=== PATIENT | female | born 1930 | race Caucasian/White ===

== ENCOUNTER 2017-03-22 11:13 | Outpatient (CLI) | payer MEDICARE, OTHER ==
--- NOTE | 2017-03-22 14:03 | CT ---
CT ABDOMEN AND PELVIS WITHOUT IV CONTRAST: 03/22/2017 HISTORY: Abdominal pain, unspecified. The patient has had abdominal pain for one week. FINDINGS: There is linear scarring versus atelectasis at each lung base. There are cardiac pacemaker leads partially visualized. Post cholecystectomy changes are noted. There are dense vascular calcifications seen in the abdominal aorta and involving the iliac arteries. There is colonic diverticulosis diffusely involving the colon but much more numerous involving the de scending and sigmoid colon. There is eccentric thickening involving the left lateral wall of the sig moid colon, with associated adjacent pericolonic inflammatory changes. Findings are most likely attr ibutable to diverticulitis. No fluid collection is seen to suggest an abscess, and no obvious foci o f free intraperitoneal gas is seen. Small hiatal hernia is present. The liver, spleen, pancreas, and adrenal glands demonstrate a grossly normal nonenhanced CT appearanc e. There is suggestion of scarring involving the kidneys bilaterally. There is an exophytic hypodense l esion involving the inferior pole left kidney, measuring 2.3 cm, and demonstrating an attenuation campbell fficient most suggestive of a cyst, based on this nonenhanced CT scan exam. This hypodense lesion wa s seen on the prior study in 2010 but is larger in size, which is probably related to enlargement of a cyst. This previously measured 1.2 cm. There is evidence of a hysterectomy. The urinary bladder is decompressed and not well evaluated on this exam. There is right convex scoliosis of the lumbar spine with multilevel changes in the lumbar spine. The re are post surgical changes involving the pubic symphysis. IMPRESSION: 1. Diverticulitis involving the sigmoid colon; however, follow-up evaluation is recommended after tr eatment to ensure resolution of the eccentric wall thickening of the sigmoid colon. 2. Small hiatal hernia. 3. Probable inferior pole left renal cyst, with an additional subcentimeter hypodense lesion at the lateral aspect, mid portion, left kidney. 4. Post surgical changes related to cholecystectomy and hysterectomy. 5. The above findings were discussed with Dr. Calloway on 03/22/2017 at 12:49 hours. CODE CR POS: [facility]
== END 2017-03-22 11:14 | disposition home or self-care (01) ==
LOC: CT 11:13
PROVIDERS: ATTEND Internal Medicine
DX: R10.9 Unspecified abdominal pain (principal); K57.32 Diverticulitis of large intestine without perforation or abscess without bleeding; K44.9 Diaphragmatic hernia without obstruction or gangrene; Z90.49 Acquired absence of other specified parts of digestive tract; Z90.710 Acquired absence of both cervix and uterus
CPT/HCPCS: 74176

== ENCOUNTER 2017-03-22 17:42 | Inpatient (IN) | payer MEDICARE, OTHER ==
[2017-03-22 19:40] LABS: #Basophils 0.1 thou/uL (0.0-0.2); #Eosinphils 0.2 thou/uL (0.0-0.7); #Lymphocytes 1.9 thou/uL (1.20-3.40); #Monocytes 0.7 thou/uL (0.11-0.59); #Neutrophils 5.6 thou/uL (1.40-6.50); %Basophils 0.7 % (0.0-1.0); %Eosinophils 2.3 % (0.0-10.0); %Lymphocytes 22.5 % (21.0-51.0); %Monocytes 7.9 % (0.0-10.0); Hematocrit 40.3 % (36.0-47.0); Mean Platelet Volume 7.6 fL (7.4-10.4); Red Blood Cell (RBC) Count 4.15 mill/uL (4.20-5.40); White Blood Cell (WBC) Count 8.4 thou/uL (4.8-10.8)
[2017-03-22 20:30] LABS: Bilirubin Negative (Negative); Blood, Urine Moderate (Negative); Glucose, Urine (Dipstick) Negative (Negative); Ketone, Urine Negative (Negative); Nitrite Negative (Negative); Protein, Urine (Dipstick) Negative (Neg-Trace); Urobilinogen 0.2 mg/dL (0.2-1.0)
[2017-03-22 20:33] LABS: Bacteria/HPF Rare-Few HPF (None Seen); Hyaline Casts/LPF 0-3 HYALINE CAST LPF (0-3 Hyaline); Squamous Epithelial 0-3 HPF (0-3)
[2017-03-22 20:34] LABS: ALT (SGPT) 16 U/L (8-55); AST (SGOT) 21 U/L (5-34); Alkaline Phosphatase 61 U/L (40-150); Anion Gap 14 mmol/L (10-20); BUN (Urea Nitrogen) 18 mg/dL (9.8-20.1); Bilirubin, Total 0.3 mg/dL (0.2-1.2); Calc. Creatinine Clearance 0 mL/min (70-130); Calcium 9.4 mg/dL (7.8-10.44); Carbon Dioxide 29 mmol/L (23-31); Chloride 101 mmol/L (98-107); Estimated GFR-MDRD 46; Globulin 3.3 g/dL (2.4-3.5); Lipase 7 U/L (8-78); Protein, Total 6.9 g/dL (6.0-8.3)
[2017-03-22] MEDS ORDERED: metroNIDAZOLE 500 MG/100 ML BAG ONE (21:11)
[2017-03-22] MEDS ORDERED: Ondansetron HCl/PF 4 MG/2 ML Vial IVP PRN ×2 (22:33→22:39)
[2017-03-22] MEDS ORDERED: Ondansetron ODT 4 MG TAB SL PRN (22:33)
[2017-03-22] MEDS ORDERED: Sodium Chloride 0.9% 1,000 ML IV SCH (22:33)
[2017-03-22] MEDS ORDERED: Acetaminophen 325 MG TAB PO PRN (22:33)
[2017-03-22] MEDS ORDERED: Mag-Al 1200 mg/1200 mg/30 ML UDCUP PO PRN (22:39)
[2017-03-22] MEDS ORDERED: Ondansetron ODT 4 MG TAB PO PRN (22:39)
[2017-03-22] MEDS ORDERED: Calcium Carbonate 500 MG ChewTAB PO PRN (22:39)
[2017-03-22] MEDS ORDERED: hydrALAZINE 20 MG/ML VIAL SLOW IVP PRN (22:44)
[2017-03-22] MEDS ORDERED: Labetalol HCl 100 MG/20 ML VIAL SLOW IVP PRN (22:44)
[2017-03-22] MEDS ORDERED: Diabetic Tussin 200 MG/10 ML UDCUP PO PRN (22:44)
[2017-03-22] MEDS ORDERED: Eucerin (Mineral Oil/Petrolatum,White) 30 gm Jar TOP PRN (22:44)
[2017-03-22 22:53] VITALS: BMI 27.1
--- NOTE | 2017-03-22 23:11 | HP ---
DATE OF ADMISSION: 03/22/2017 PRIMARY CARE PHYSICIAN: Elva Calloway M.D. PRIMARY CLOTH FINISHING RANGE OPERATOR: Taiwo Ponce M.D. CHIEF COMPLAINT: Abdominal discomfort. CODE STATUS: FULL CODE. SURROGATE DECISION-MAKER: The patient makes her own decision with the help of her family. HISTORY OF PRESENT ILLNESS: The patient is an 86-year-old female with diverticulosis; sick sinus syn drome, status post pacemaker; paroxysmal atrial fibrillation, on anticoagulation; and history of dive rticular bleed last year, presented to the emergency room with above complaints. The patient has abdominal discomfort that is ongoing for the last 4 days. It is localized in the sup rapubic region and the left lower quadrant. She also had diarrhea without any nausea or vomiting. S he also had some burning in the urination; however, denies any hematuria, hematemesis, or hematochezi a. She felt feverish; however, did not record her temperature. Her pain was moderate in intensity w ithout any radiation. In the emergency room, initial vital signs showed temperature 97.9, respiration of 16, pulse of 69 wi th blood pressure 153/81 with O2 saturation 93% on room air. CT scan of the abdomen was consistent w ith sigmoid diverticulitis. She received ciprofloxacin, Flagyl with IV fluids in the emergency room. The patient was seen by her primary care physician 2 days ago and was diagnosed with urinary tract in fection. She was started on antibiotics after urine cultures. Urine culture today shows E. coli sen sitive to ceftriaxone. She was getting ceftriaxone intramuscularly on the daily basis per patient re port. Dr. Calloway discussed the case with the primary urologist Dr. Butler, who recommended 1 gram Ro cephin on the daily basis. Due to her diarrhea, she was started on Flagyl yesterday. However, due t o worsening symptoms, she presented to the emergency room today. PAST MEDICAL HISTORY: 1. Hypertension. 2. Hyperlipidemia. 3. Benign brain tumor, status post removal in 2002. 4. Gastroesophageal reflux disease. 5. Anxiety. 6. Atrial fibrillation, currently on anticoagulation. 7. Rheumatoid arthritis. 8. Depression. 9. History of recurrent urinary tract infections followed by Dr. Butler. 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 11. History of shingles. 12. History of GI bleeding in 02/22/2017. 13. Diverticulosis. PAST SURGICAL HISTORY: 1. Pacemaker placement. 2. Colonoscopy in 2010. 3. Appendectomy. 4. Tonsillectomy. 5. Removal of a tumor from her back in 1960s. 7. Hysterectomy. 8. Cholecystectomy. 9. Bladder suspension. ALLERGIES: The patient is allergic to CODEINE, HYDROCODONE, DEMEROL, SULFA, AND PROPOXYPHENE. CURRENT HOME MEDICATIONS: The patient cannot recall any of her home medications. Family to bring an accurate list later today or in a.m. SOCIAL HISTORY: The patient currently lives at home. No tobacco, alcohol or drug use. Ambulates wi th the help of a walker. FAMILY HISTORY: Positive for diabetes. Sister has throat cancer. One brother with prostate cancer. Mother with hypertension. REVIEW OF SYSTEMS: The following complete review of systems was negative, unless otherwise mentioned in the HPI or below: Constitutional: Weight loss or gain, ability to conduct usual activities. Skin: Rash, itching. Eyes: Double vision, pain. ENT/Mouth: Nose bleeding, neck stiffness, pain, tenderness. Cardiovascular: Palpitations, dyspnea on exertion, orthopnea. Respiratory: Shortness of breath, wheezing, cough, hemoptysis, fever or night sweats. Gastrointestinal: Poor appetite, abdominal pain, heartburn, nausea, vomiting, constipation, or diarr hea. Genitourinary: Urgency, frequency, dysuria, nocturia. Musculoskeletal: Pain, swelling. Neurologic/Psychiatric: Anxiety, depression. Allergy/Immunologic: Skin rash, bleeding tendency. PHYSICAL EXAMINATION: VITAL SIGNS: As discussed above. GENERAL: An 86-year-old female feels generally weak, in mild distress due to abdominal discomfort. HEENT: Head atraumatic, normocephalic, sclerae are anicteric. Moist mucous membranes. No oral lesi on. NECK: Supple, no JVD appreciated. No carotid bruit. LUNGS: Clear to auscultation bilaterally. No wheezing or rales. HEART: S1, S2 present. Regular rate and rhythm. No rubs or gallops appreciated. ABDOMEN: Soft. There is tenderness over the suprapubic and the left lower quadrant. No rebound, gu arding, no costovertebral angle tenderness. SKIN: Warm and dry. LYMPH NODES: No palpable lymph nodes in the neck. PERIPHERAL VASCULAR: Radial pulses palpable bilaterally. SKIN: Warm and dry. NEUROLOGIC: Grossly nonfocal, moves all four extremities. PSYCHIATRY: Alert, awake, oriented x3. LABORATORY FINDINGS: CBC showed WBC of 13.1 two days ago and 8.4 today. Neutrophils 2 days ago was 78.1. Creatinine on the 12th was 1.28, today was 1.1. Sodium 138, potassium 3.9, bicarbonate 98 wit h bicarbonate 32 two days ago. Urinalysis on the shows greater than 50 wbc's with 4+ bacteria. Urine cultures from the 03/20/2017, shows E. coli sensitive to ceftriaxone, resistant to ampicillin and Bactrim. CT scan of the abdomen and pelvis by my review as discussed above. Chest x-ray earlier this year was negative for acute findings. IMPRESSION: 1. Acute sigmoid diverticulitis. 2. Escherichia coli urinary tract infection, currently on intramuscularly ceftriaxone on the daily b asis since 03/20/2017. 3. Suspected sepsis secondary to #1 and #2. Her WBC count was 13.1 on 03/20/2017 with left shift. 4. Acute kidney injury on chronic kidney disease stage 3. Creatinine at baseline at 0.8. Creatinin e 2 days ago was 1.28. Probably with acute organ dysfunction from sepsis and dehydration. 5. History of diverticulosis with bleeding in the past. 6. Sick sinus syndrome, status post pacemaker. 7. Paroxysmal atrial fibrillation on anticoagulation. 8. Severe rheumatoid arthritis. Does not follow any hammerer tab at this time. 9. Dyslipidemia. 10. Gastroesophageal reflux disease. 11. Anxiety. 12. Depression. 13. Hypertension. 14. History of recurrent urinary tract infections followed by Dr. Butler. PLAN: The patient will be monitored on the medical floor. She will probably require 2 to 3 days for stabilization. She also probably failed outpatient therapy. She has a urinary tract infection that is partially treated. She will require a GI evaluation. We will continue Flagyl that was started b y her primary care physician yesterday. She received ciprofloxacin in the emergency room. We will a void quinolones due to cardiac history. We will continue ceftriaxone, which will cover both urinary tract infection as well as diverticulitis. She is allergic to BACTRIM. We will repeat labs in a.m. IV hydration. Resume labs including Eliquis since patient denies any hematochezia or melena. Fall precautions. Consult Physical Therapy. Pain control. The patient is allergic to MULTIPLE NARCOTICS . Plan of care was discussed with the patient. She stated understanding. The patient will require 2 to 3 days for stabilization given her multiple comorbidities including rickey pected sepsis, dehydration, urinary tract infection and probable failed outpatient treatment for dive rticulitis.
[2017-03-22] MEDS: cefTRIAXone\\ROCEPHIN 1 GM in Sterile Water 10 ML SLOW IVP SCH (23:53)
[2017-03-22] MEDS: Sodium Chloride 0.9% 1,000 ML IV SCH (23:53)
[2017-03-23] MEDS: Zolpidem Tartrate 5 MG TAB PO PRN (00:16)
[2017-03-23 04:33] LABS: #Eosinphils 0.2 thou/uL (0.0-0.7); #Lymphocytes 1.5 thou/uL (1.20-3.40); #Monocytes 0.8 thou/uL (0.11-0.59); %Basophils 0.5 % (0.0-1.0); %Eosinophils 1.8 % (0.0-10.0); %Lymphocytes 17.8 % (21.0-51.0); %Monocytes 9.3 % (0.0-10.0); Hematocrit 38.6 % (36.0-47.0); Mean Platelet Volume 7.7 fL (7.4-10.4); White Blood Cell (WBC) Count 8.4 thou/uL (4.8-10.8)
[2017-03-23 04:49] LABS: Anion Gap 10 mmol/L (10-20); BUN (Urea Nitrogen) 13 mg/dL (9.8-20.1); BUN/Creatinine Ratio 14.61; Calc. Creatinine Clearance 54 mL/min (70-130); Calcium 9.1 mg/dL (7.8-10.44); Carbon Dioxide 31 mmol/L (23-31); Chloride 104 mmol/L (98-107); Estimated GFR-MDRD 60; Magnesium 1.4 mg/dL (1.6-2.6); Phosphorus 2.8 mg/dL (2.3-4.7)
[2017-03-23] MEDS: metroNIDAZOLE 500 MG in Premix Bag 1 BAG IVPB SCH ×3 (05:39→21:28)
[2017-03-23] MEDS ORDERED: Magnesium Sulfate 4 GM in Sodium Chloride 0.9% 250 ML 250 ML IVPB SCH (06:00)
[2017-03-23] MEDS ORDERED: Famotidine 20 MG TAB PO SCH (09:00)
[2017-03-23] MEDS ORDERED: Non-Formulary Item 1 EACH (Bifidobacterium Infantis [Align] 4 MG) PO SCH (09:00)
[2017-03-23] MEDS: Losartan 25 MG TAB PO SCH (09:07)
[2017-03-23] MEDS: Ascorbic Acid 500 mg Chewable Tablet PO SCH (09:07)
[2017-03-23] MEDS: ALPRAZolam 0.25 MG TAB PO SCH (09:07)
[2017-03-23] MEDS: Saccharomyces boulardii 250 MG CAP PO SCH (09:07)
[2017-03-23] MEDS: Cyanocobalamin (Vitamin B-12) 1,000 MCG TAB PO SCH (09:08)
[2017-03-23] MEDS: Potassium Chloride 10 MEQ TAB PO SCH ×3 (09:08→16:43)
[2017-03-23] MEDS: Apixaban 5 MG TAB PO SCH ×2 (09:08→20:50)
[2017-03-23] MEDS: Amiodarone 200 MG TAB PO SCH (09:13)
--- NOTE | 2017-03-23 11:25 | PDOC.PN ---
- Subjective Encounter Start Date: 03/23/17 Encounter Start Time: 09:55 -: old records requested/rev Pt seen and examined, chart reviewed in its entirety. Tired, up all night transferring twice to different rooms. LLQ soreness, but no cramps or pain. No diarrhea since admit, no F/C, no CP or SOb, no cough or sputum, no GI bleeding. GI consulted by skein bleacher, awaiting eval. Stool studies pending sample, pt hasnt prodiced yet Recent UTI eith E coli, sens to CTX, started on IM CTX 03/20. continued on CTX and flagyl for diverticulitis. Mag low, replaced. Hungry, wants to eat and have coffee 10 point ROs performed and neg for all systems except as per HPI - Objective Resuscitation Status: Resuscitation Status FULL:Full Resuscitation MAR Reviewed: Yes Vital Signs & Weight: Vital Signs (12 hours) Temp Pulse Resp BP BP BP BP 03/23/17 08:05 97.6 F 72 16 145/77 H 110/72 130/72 03/23/17 04:44 78 16 125/73 03/23/17 04:43 80 16 143/76 H 03/23/17 04:36 97.7 F 76 16 132/72 03/23/17 02:14 81 141/78 H 03/23/17 00:15 97.9 F 87 20 162/77 H 03/22/17 23:52 85 213/100 H 03/22/17 23:30 97.7 F 85 20 213/100 H Pulse Ox 03/23/17 08:05 91 L 03/23/17 04:44 91 L 03/23/17 04:43 92 L 03/23/17 04:36 91 L 03/23/17 02:14 03/23/17 00:15 96 03/22/17 23:52 03/22/17 23:30 97 Weight Weight 168 lb 8 oz I&O: 03/22/17 03/23/17 03/24/17 06:59 06:59 06:59 Intake Total 950 Output Total 500 Balance 450 Result Diagrams: 03/23/17 03:50 03/23/17 03:50 Radiology Reviewed by me: Yes EKG Reviewed by me: Yes Phys Exam - Physical Examination Constitutional: NAD HEENT: PERRLA, moist MMs, sclera anicteric, oral pharynx no lesions Neck: no nodes, no JVD, supple, full ROM Respiratory: no wheezing, no rales, no rhonchi, clear to auscultation bilateral Cardiovascular: RRR, no significant murmur, no rub Gastrointestinal: soft, non-tender, no distention, positive bowel sounds Musculoskeletal: no edema, pulses present Neurological: non-focal, normal sensation, moves all 4 limbs Lymphatic: no nodes Psychiatric: normal affect, A&O x 3 Skin: no rash, normal turgor, cap refill <2 seconds Dx/Plan (1) Acute diverticulitis Code(s): K57.92 - DVTRCLI OF INTEST, PART UNSP, W/O PERF OR ABSCESS W/O BLEED Status: Acute Comment: on CTX and flagyl, GI to see. (2) Chronic a-fib Code(s): I48.2 - CHRONIC ATRIAL FIBRILLATION Status: Chronic (3) E. coli UTI (urinary tract infection) Code(s): N39.0 - URINARY TRACT INFECTION, SITE NOT SPECIFIED; B96.20 - UNSP ESCHERICHIA COLI THE CAUSE OF DISEASES CLASSD ELSWHR Status: Acute Comment: present on admit, not catheter associated. continue CTX (4) CAD (coronary artery disease) Code(s): I25.10 - ATHSCL HEART DISEASE OF [place] CORONARY ARTERY W/O ANG PCTRS Status: Chronic Qualifiers: Coronary Disease-Associated Artery/Lesion type: [place] artery [place] vs. transplanted heart: [place] heart Associated angina: without angina Qualified Code(s): I25.10 - Atherosclerotic heart disease of [place] coronary artery without angina pectoris (5) Diverticulosis of colon Code(s): K57.30 - DVRTCLOS OF LG INT W/O PERFORATION OR ABSCESS W/O BLEEDING Status: Chronic Qualifiers: Diverticulosis bleeding: diverticulosis without bleeding Qualified Code(s) : K57.30 - Diverticulosis of large intestine without perforation or abscess without bleeding Comment: covered with abx, symptoms improved. (6) HTN (hypertension) Code(s): I10 - ESSENTIAL (PRIMARY) HYPERTENSION Status: Chronic Qualifiers: Hypertension type: essential hypertension - Plan cont current plan of care, continue antibiotics, PT/OT, out of bed/ambulate * .
[2017-03-23] MEDS: Sodium Chloride 0.9% 1,000 ML IV SCH (12:40)
[2017-03-23] MEDS: Fish Oil 1,000 MG CAP PO SCH (20:51)
[2017-03-23] MEDS: Multivitamin W/ Minerals 1 TAB PO SCH (20:52)
[2017-03-23] MEDS: Atorvastatin Calcium 20 MG TAB PO SCH (20:52)
--- NOTE | 2017-03-23 21:32 | CON ---
DATE OF CONSULTATION: 03/23/2017 REASON FOR CONSULTATION: Possible diverticulitis. HISTORY OF PRESENT ILLNESS: Ms. Escamilla is a pleasant 86-year-old female who was actually here a year ago with what appeared to be diverticular bleeding. She recently was having problems with recurrent UTIs and was getting some Rocephin by her primary physician. She had positive urine cultures for E . coli. She has had multiple courses of antibiotics for E. coli in the urine. This time, she was no t getting better and she got some Rocephin. She ultimately was sent to the emergency room and she is having more left lower quadrant pain. She is a little bit different than her typical urinary tract infection symptoms and apparently, she was also having some diarrhea. She does not remember exactly all of her symptoms now, but presently, she is much better. Emergency room provider note indicates t hat three days prior to admission, she was having suprapubic pain and dysuria and she was getting Charles ephin. Then, she had a CAT scan, which shows diverticulitis for which she has some Flagyl. Then, eliza aggarwal has some diarrhea and they decided to send her to the emergency room. When she presented, her symp toms seemed to worsen when she needed to urinate. Her admission CAT scan showed no signs of air in the bladder. Apparently, there is some thickening i n the lateral wall of the sigmoid colon. It is unclear if that is diverticulitis or edema. There is a little bit of fat stranding but not much. Her last colonoscopy was in 2010. She has had no bleed ing at this time. PAST MEDICAL HISTORY: Atrial fibrillation with GI bleed on Eliquis last year that was held for a cou ple of weeks and then restarted, hypertension, hyperlipidemia, benign brain tumor removed in 2002, re flux, anxiety, rheumatoid arthritis with deformation in the hands consistent with this, depression, h istory of recurrent UTIs, left parotid gland tumor, shingles, GI bleed in 02/2016. PAST SURGICAL HISTORY: Pacemaker, colonoscopy in 2010, appendectomy, tonsillectomy, removal of tumor back in 1959, hysterectomy, cholecystectomy, bladder suspension. ALLERGIES: CODEINE, DEMEROL, HYDROCODONE, SULFA. HOME MEDICATIONS: Imodium, Protonix, Toprol, B12, Align, Lipitor, vitamin C, Eliquis, amiodarone, Ty lenol. MEDICATIONS HERE: Tylenol, Maalox, DuoNeb, Xanax, amiodarone, Eliquis, vitamin C, Lipitor, Tums, vit gray D, vitamin B, multivitamin, Cozaar, Toprol, Zofran p.r.n., Protonix 40 p.o. daily, Florastor, Jad christianson. PHYSICAL EXAMINATION: GENERAL: The patient is resting comfortably in bed. She is in no distress. VITAL SIGNS: Temperature 97. She has been afebrile since admission. Blood pressure 135/98. LUNGS: Clear. HEART: Regular rate and rhythm without clicks or murmurs. ABDOMEN: Soft, nontender, without palpable hepatosplenomegaly. There is no rebound. There is no gu arding. LABORATORY AND X-RAY FINDINGS: CAT scan films were reviewed. White count was 13 on 03/20/2017, 8.4 today, hemoglobin is 12.4, was 14.4 on admission, platelet count is 260. INR is normal. Comp metabo lic profile normal. Liver function tests normal. ASSESSMENT: Lower abdominal pain, some diarrhea. She has gotten better with Rocephin and Flagyl IV. It is unclear if this is related to her urinary tract infections and diverticulitis. She did have a mild leukocytosis. She was also having diarrhea and she followed with antibiotics and this possibl y could be antibiotic-associated diarrhea. RECOMMENDATIONS: Continue present course. Continue probiotics. Advance diet to soft. Hope that eliza aggarwal can go home over the next day or so. She will need to have a colonoscopy outpatient study to [facility].
[2017-03-24] MEDS: Zolpidem Tartrate 5 MG TAB PO PRN ×2 (00:10→21:13)
[2017-03-24] MEDS: cefTRIAXone\\ROCEPHIN 1 GM in Sterile Water 10 ML SLOW IVP SCH (00:11)
[2017-03-24 04:35] LABS: #Eosinphils 0.2 thou/uL (0.0-0.7); #Lymphocytes 1.8 thou/uL (1.20-3.40); #Monocytes 0.6 thou/uL (0.11-0.59); #Neutrophils 4.1 thou/uL (1.40-6.50); %Basophils 0.7 % (0.0-1.0); %Lymphocytes 26.7 % (21.0-51.0); %Monocytes 8.7 % (0.0-10.0); Hematocrit 35.7 % (36.0-47.0); Mean Platelet Volume 7.8 fL (7.4-10.4); Red Blood Cell (RBC) Count 3.63 mill/uL (4.20-5.40); White Blood Cell (WBC) Count 6.7 thou/uL (4.8-10.8)
[2017-03-24 04:57] LABS: Anion Gap 9 mmol/L (10-20); BUN (Urea Nitrogen) 11 mg/dL (9.8-20.1); BUN/Creatinine Ratio 10.28; Calc. Creatinine Clearance 45 mL/min (70-130); Calcium 8.6 mg/dL (7.8-10.44); Carbon Dioxide 30 mmol/L (23-31); Chloride 106 mmol/L (98-107); Estimated GFR-MDRD 49; Magnesium 2.4 mg/dL (1.6-2.6); Phosphorus 3.8 mg/dL (2.3-4.7)
[2017-03-24] MEDS: metroNIDAZOLE 500 MG in Premix Bag 1 BAG IVPB SCH ×3 (06:35→21:17)
[2017-03-24] MEDS: Apixaban 5 MG TAB PO SCH ×2 (09:30→21:12)
[2017-03-24] MEDS: Saccharomyces boulardii 250 MG CAP PO SCH (09:30)
[2017-03-24] MEDS: ALPRAZolam 0.25 MG TAB PO SCH (09:31)
[2017-03-24] MEDS: Losartan 25 MG TAB PO SCH (09:32)
[2017-03-24] MEDS: Cyanocobalamin (Vitamin B-12) 1,000 MCG TAB PO SCH (09:33)
[2017-03-24] MEDS: Amiodarone 200 MG TAB PO SCH (09:33)
[2017-03-24] MEDS: Ascorbic Acid 500 mg Chewable Tablet PO SCH (09:37)
[2017-03-24] MEDS: Sodium Chloride 0.9% 1,000 ML IV SCH ×3 (09:37→22:28)
--- NOTE | 2017-03-24 11:18 | PDOC.PN ---
- Subjective Encounter Start Date: 03/24/17 Encounter Start Time: 09:55 CDiff came back positive. water BM last evening, loosly formed today No fevers, no CP or SOB, no N/V/d/c. preoccupied with telling me what she ate at every meal in every detail No overnight events noted. Seen by GI, note reviewed 10 point ROS performed and neg for all systems except as per HPI - Objective Resuscitation Status: Resuscitation Status FULL:Full Resuscitation MAR Reviewed: Yes Vital Signs & Weight: Vital Signs (12 hours) Temp Pulse Resp BP BP BP Pulse Ox 03/24/17 08:00 98.5 F 79 16 135/75 80 L 03/24/17 05:00 98.1 F 88 20 141/73 H 132/77 110/67 93 L Weight Weight 168 lb 8 oz I&O: 03/23/17 03/24/17 03/25/17 06:59 06:59 06:59 Intake Total 950 2200 Output Total 500 Balance 450 2200 Result Diagrams: 03/24/17 03:41 03/24/17 03:41 Radiology Reviewed by me: Yes EKG Reviewed by me: Yes Phys Exam - Physical Examination Constitutional: NAD HEENT: PERRLA, moist MMs, sclera anicteric, oral pharynx no lesions Neck: no nodes, no JVD, supple, full ROM Respiratory: no wheezing, no rales, no rhonchi, clear to auscultation bilateral Cardiovascular: RRR, no significant murmur, no rub Gastrointestinal: soft, non-tender, no distention, positive bowel sounds Musculoskeletal: no edema, pulses present, edema present Neurological: non-focal, normal sensation, moves all 4 limbs Lymphatic: no nodes Psychiatric: normal affect, A&O x 3 Skin: no rash, normal turgor, cap refill <2 seconds Dx/Plan (1) Acute diverticulitis Code(s): K57.92 - DVTRCLI OF INTEST, PART UNSP, W/O PERF OR ABSCESS W/O BLEED Status: Acute Comment: Cdiff positive. on CTX and flagyl. stopping CTX, and will change to a po abx for her UTI (2) Chronic a-fib Code(s): I48.2 - CHRONIC ATRIAL FIBRILLATION Status: Chronic Comment: currentyl sounds to be in NSR. HR regular (3) E. coli UTI (urinary tract infection) Code(s): N39.0 - URINARY TRACT INFECTION, SITE NOT SPECIFIED; B96.20 - UNSP ESCHERICHIA COLI THE CAUSE OF DISEASES CLASSD ELSWHR Status: Acute Comment: present on admit, not catheter associated. cx with enterococcus. trnaisiton to sensitive po agent to reduce risk of CDiff. Rx x 3 days. (4) CAD (coronary artery disease) Code(s): I25.10 - ATHSCL HEART DISEASE OF [place] CORONARY ARTERY W/O ANG PCTRS Status: Chronic Qualifiers: Coronary Disease-Associated Artery/Lesion type: [place] artery [place] vs. transplanted heart: [place] heart Associated angina: without angina Qualified Code(s): I25.10 - Atherosclerotic heart disease of [place] coronary artery without angina pectoris (5) Diverticulosis of colon Code(s): K57.30 - DVRTCLOS OF LG INT W/O PERFORATION OR ABSCESS W/O BLEEDING Status: Chronic Qualifiers: Diverticulosis bleeding: diverticulosis without bleeding Qualified Code(s) : K57.30 - Diverticulosis of large intestine without perforation or abscess without bleeding Comment: covered with abx, symptoms improved. doubt diverticular in origin (6) HTN (hypertension) Code(s): I10 - ESSENTIAL (PRIMARY) HYPERTENSION Status: Chronic Qualifiers: Hypertension type: essential hypertension (7) C. difficile colitis Status: Acute Comment: flagyl. probiotics. - Plan cont current plan of care, continue antibiotics, PT/OT, out of bed/ambulate * .
[2017-03-24] MEDS: Acetaminophen 325 MG TAB PO PRN ×2 (13:06→22:27)
--- NOTE | 2017-03-24 20:03 | PRG ---
DATE OF SERVICE: 03/24/2017 SUBJECTIVE: Ms. Escamilla is feeling little better left lower quadrant pain, less diarrhea. PHYSICAL EXAMINATION: VITAL SIGNS: Temperature is 98, pulse 79, blood pressure 135/75. ABDOMEN: Soft, nontender. LABORATORY STUDIES: White count 6.7, hemoglobin 11.2, platelet count 276. Sodium 141, potassium 4.1 , BUN 11, creatinine 1.17. Stool came back positive for C. diff toxin. ASSESSMENT: Clostridium difficile colitis. This probably is the primary reason for getting her admi tted. She has been on and off antibiotics for urinary tract infections recently. She is on Flagyl n ow. I think on discharge, vancomycin would probably be better. She does note that she has had oral Flagyl for a few days before coming in to the hospital and they gave her quite a metallic taste and n ausea. With regard to the changes on the CAT scan, there is asymmetric thickening in the sigmoid colon. It is unclear if this is related diverticular disease and ultimately she is going to need a colonoscopy, but now it is not the time. As soon as we can get her off the antibiotics for bladder, at this time with no leukocytosis, no fever, I would go ahead and stop the other antibiotics for diverticulitis, I am not sure that she has ever clearly had that. When she is moved over to oral antibiotics, I woul d just put her on vancomycin and probiotic.
[2017-03-24] MEDS: Multivitamin W/ Minerals 1 TAB PO SCH (21:13)
[2017-03-24] MEDS: Fish Oil 1,000 MG CAP PO SCH (21:16)
[2017-03-24] MEDS: Atorvastatin Calcium 20 MG TAB PO SCH (21:16)
[2017-03-25 05:20] LABS: #Basophils 0.1 thou/uL (0.0-0.2); #Eosinphils 0.1 thou/uL (0.0-0.7); #Monocytes 0.8 thou/uL (0.11-0.59); %Basophils 0.9 % (0.0-1.0); %Eosinophils 1.9 % (0.0-10.0); %Lymphocytes 28.4 % (21.0-51.0); %Monocytes 11.8 % (0.0-10.0); Hematocrit 37.5 % (36.0-47.0); Mean Platelet Volume 7.6 fL (7.4-10.4); Red Blood Cell (RBC) Count 3.75 mill/uL (4.20-5.40)
[2017-03-25] MEDS: metroNIDAZOLE 500 MG in Premix Bag 1 BAG IVPB SCH (05:50)
[2017-03-25] MEDS: Losartan 25 MG TAB PO SCH (09:35)
[2017-03-25] MEDS: Apixaban 5 MG TAB PO SCH ×2 (09:35→20:12)
[2017-03-25] MEDS: Saccharomyces boulardii 250 MG CAP PO SCH (09:35)
[2017-03-25] MEDS: Ascorbic Acid 500 mg Chewable Tablet PO SCH (09:35)
[2017-03-25] MEDS: ALPRAZolam 0.25 MG TAB PO SCH (09:36)
[2017-03-25] MEDS: Amiodarone 200 MG TAB PO SCH (09:36)
[2017-03-25] MEDS: Cyanocobalamin (Vitamin B-12) 1,000 MCG TAB PO SCH (09:37)
--- NOTE | 2017-03-25 11:41 | PDOC.PN ---
- Subjective Encounter Start Date: 03/25/17 Encounter Start Time: 10:00 Pt doing ok. No fevers or chills, no N/V/D/c, no CP or SOB. O2 still low, requiring some o2. has o2 at home for bedtime and as needed. no diarrhea, stools more formed. Seen by GI yesterday, recommended po Vanc, florastor (already on) and possible discharge. overall feeling better. pt want sme to speak with her daughter when she arrives 10 point rOS performed and neg fro all systems except as per HPI - Objective Resuscitation Status: Resuscitation Status FULL:Full Resuscitation MAR Reviewed: Yes Vital Signs & Weight: Vital Signs (12 hours) Temp Pulse Resp BP BP BP BP 03/25/17 08:42 98.5 F 64 20 143/75 H 125/80 145/74 H 03/25/17 08:00 98.5 F 64 20 03/25/17 04:27 03/25/17 01:45 97.8 F 67 20 165/78 H Pulse Ox 03/25/17 08:42 91 L 03/25/17 08:00 92 L 03/25/17 04:27 96 03/25/17 01:45 96 Weight Weight 168 lb 8 oz I&O: 03/24/17 03/25/17 03/26/17 06:59 06:59 06:59 Intake Total 2200 1200 Balance 2200 1200 Result Diagrams: 03/25/17 04:42 03/24/17 03:41 Phys Exam - Physical Examination Constitutional: NAD HEENT: PERRLA, moist MMs, sclera anicteric, oral pharynx no lesions Neck: no nodes, no JVD, supple, full ROM Respiratory: no wheezing, no rales, no rhonchi, clear to auscultation bilateral Cardiovascular: RRR, no significant murmur, no rub Gastrointestinal: soft, non-tender, no distention, positive bowel sounds Musculoskeletal: no edema, pulses present Neurological: non-focal, normal sensation, moves all 4 limbs Lymphatic: no nodes Psychiatric: normal affect, A&O x 3 Skin: no rash, normal turgor, cap refill <2 seconds Dx/Plan (1) Acute diverticulitis Code(s): K57.92 - DVTRCLI OF INTEST, PART UNSP, W/O PERF OR ABSCESS W/O BLEED Status: Acute Comment: suspect not diverticulitis, C diff positive. Rx for CDiff with po vanc now. (2) Chronic a-fib Code(s): I48.2 - CHRONIC ATRIAL FIBRILLATION Status: Chronic Comment: currently sounds to be in NSR. HR regular (3) E. coli UTI (urinary tract infection) Code(s): N39.0 - URINARY TRACT INFECTION, SITE NOT SPECIFIED; B96.20 - UNSP ESCHERICHIA COLI THE CAUSE OF DISEASES CLASSD ELSWHR Status: Acute Comment: present on admit, not catheter associated. cx with enterococcus. Changed to po ampicillin. Rx x 3-5 days only (4) CAD (coronary artery disease) Code(s): I25.10 - ATHSCL HEART DISEASE OF [place] CORONARY ARTERY W/O ANG PCTRS Status: Chronic Qualifiers: Coronary Disease-Associated Artery/Lesion type: [place] artery [place] vs. transplanted heart: [place] heart Associated angina: without angina Qualified Code(s): I25.10 - Atherosclerotic heart disease of [place] coronary artery without angina pectoris (5) Diverticulosis of colon Code(s): K57.30 - DVRTCLOS OF LG INT W/O PERFORATION OR ABSCESS W/O BLEEDING Status: Chronic Qualifiers: Diverticulosis bleeding: diverticulosis without bleeding Qualified Code(s) : K57.30 - Diverticulosis of large intestine without perforation or abscess without bleeding Comment: covered with abx, symptoms improved. doubt diverticular in origin (6) HTN (hypertension) Code(s): I10 - ESSENTIAL (PRIMARY) HYPERTENSION Status: Chronic Qualifiers: Hypertension type: essential hypertension Qualified Code(s): I10 - Essential (primary) hypertension (7) C. difficile colitis Status: Acute Comment: PO Vanc. probiotics. intake keeping up woth output. d/c if okay with GI possible later today - Plan cont current plan of care, continue antibiotics, PT/OT, out of bed/ambulate * .
[2017-03-25] MEDS: Sodium Chloride 0.9% 1,000 ML IV SCH (16:23)
--- NOTE | 2017-03-25 17:04 | PRG ---
DATE OF SERVICE: 03/25/2017 SUBJECTIVE: Ms. Escamilla's diarrhea is doing better. She has no pain. OBJECTIVE: VITAL SIGNS: Temperature is 98.7, pulse 62, respirations 20, O2 saturation 94% on 2 liters nasal can nula, and blood pressure 149/77. GENERAL: The patient is resting comfortably, but was asleep when I came in. On arousal, she is with out complaints, alert and oriented. ABDOMEN: Soft and nontender. LABORATORY STUDIES: White count 7, hemoglobin 11.4, MCV 100, platelets 272. Sodium 141, potassium 4 .1, albumin 2.7, phosphorus 3.8, magnesium 2.4, BUN and creatinine are 11 and 1.07. ASSESSMENT AND PLAN: 1. Colitis, likely Clostridium difficile, improving on Florastor and vancomycin p.o. IV Flagyl has been discontinued today. 2. Urinary tract infection. The patient is on ampicillin, will be treated for 3-5 days. 3. Chronic atrial fibrillation. She is in normal sinus rhythm now. 4. Diverticulitis, suspect this is not diverticulitis for Clostridium difficile. Agree with hospita list. 5. Home O2 requirements baseline. We would recommend 14 days of p.o. vancomycin with probiotics for 3 months. When she is discharged, she can follow up in our office in 1 week.
[2017-03-25] MEDS: Fish Oil 1,000 MG CAP PO SCH (20:12)
[2017-03-25] MEDS: Atorvastatin Calcium 20 MG TAB PO SCH (20:12)
[2017-03-25] MEDS: Multivitamin W/ Minerals 1 TAB PO SCH (20:13)
[2017-03-25] MEDS: Acetaminophen 325 MG TAB PO PRN (20:20)
[2017-03-25] MEDS: Zolpidem Tartrate 5 MG TAB PO PRN (21:21)
[2017-03-26] MEDS: Sodium Chloride 0.9% 1,000 ML IV SCH ×2 (05:26→17:24)
[2017-03-26] MEDS: Saccharomyces boulardii 250 MG CAP PO SCH (09:23)
[2017-03-26] MEDS: Apixaban 5 MG TAB PO SCH ×2 (09:26→20:31)
[2017-03-26] MEDS: Ascorbic Acid 500 mg Chewable Tablet PO SCH (09:27)
[2017-03-26] MEDS: Losartan 25 MG TAB PO SCH (09:28)
[2017-03-26] MEDS: Cyanocobalamin (Vitamin B-12) 1,000 MCG TAB PO SCH (09:29)
[2017-03-26] MEDS: ALPRAZolam 0.25 MG TAB PO SCH (09:29)
[2017-03-26] MEDS: Amiodarone 200 MG TAB PO SCH (09:30)
[2017-03-26] MEDS: Vancomycin HCl 25 MG/ML Oral PO SCH (09:30)
--- NOTE | 2017-03-26 09:47 | RAD ---
CHEST 2 VIEWS: COMPARISON: 12/23/13, 10/03/16. HISTORY: Cough. Hypoxia. FINDINGS: Stable left-sided transvenous pacemaker. Atherosclerosis of the aorta. Normal cardiac silhouette. The pulmonary vessels are slightly prominent. There are bibasilar pleural and parenchymal changes. No pneumothorax. IMPRESSION: 1. Bibasilar pleural and parenchymal changes. 2. Atherosclerosis. POS: [facility]
[2017-03-26] MEDS: Acetaminophen 325 MG TAB PO PRN (12:06)
--- NOTE | 2017-03-26 12:26 | PDOC.PN ---
- Subjective Encounter Start Date: 03/26/17 Encounter Start Time: 11:30 Pt seen and examined. Expected to go home today, but held overnight due ot episode of PND the night before. Last night, did have another episode, increased from 2 to 2.5L per NC. More importantly, pt developed explosive diarrhea, claims to have had 10 episodes, and unable to make it to the bathroom in time. No F/C, no N/V, no CP, no other SOb. 2v CXR done this morning. images and results reviewed 10 point ROS performed and neg for all systems except as per HPI - Objective Resuscitation Status: Resuscitation Status FULL:Full Resuscitation MAR Reviewed: Yes Vital Signs & Weight: Vital Signs (12 hours) Temp Pulse Resp BP Pulse Ox 03/26/17 10:41 97.4 F L 76 20 148/66 H 91 L 03/26/17 08:00 98 F 93 18 92 L 03/26/17 04:14 93 18 95 Weight Weight 168 lb 8 oz I&O: 03/25/17 03/26/17 03/27/17 06:59 06:59 06:59 Intake Total 1200 1620 Balance 1200 1620 Result Diagrams: 03/25/17 04:42 03/24/17 03:41 Radiology Reviewed by me: Yes EKG Reviewed by me: Yes Phys Exam - Physical Examination Constitutional: NAD HEENT: PERRLA, moist MMs, sclera anicteric, oral pharynx no lesions Neck: no nodes, no JVD, supple, full ROM Respiratory: no wheezing, no rales, no rhonchi, clear to auscultation bilateral Cardiovascular: RRR, no significant murmur, no rub Gastrointestinal: soft, non-tender, no distention, positive bowel sounds Musculoskeletal: no edema, pulses present Neurological: non-focal, normal sensation, moves all 4 limbs Lymphatic: no nodes Psychiatric: normal affect, A&O x 3 Skin: no rash, normal turgor, cap refill <2 seconds Dx/Plan (1) Acute diverticulitis Code(s): K57.92 - DVTRCLI OF INTEST, PART UNSP, W/O PERF OR ABSCESS W/O BLEED Status: Acute Comment: suspect not diverticulitis, C diff positive. Rx for CDiff with po vanc now. (2) Chronic a-fib Code(s): I48.2 - CHRONIC ATRIAL FIBRILLATION Status: Chronic Comment: currently sounds to be in NSR. HR regular (3) E. coli UTI (urinary tract infection) Code(s): N39.0 - URINARY TRACT INFECTION, SITE NOT SPECIFIED; B96.20 - UNSP ESCHERICHIA COLI THE CAUSE OF DISEASES CLASSD ELSWHR Status: Acute Comment: present on admit, not catheter associated. cx with enterococcus. Changed to po ampicillin. Rx x 3-5 days only (4) CAD (coronary artery disease) Code(s): I25.10 - ATHSCL HEART DISEASE OF [place] CORONARY ARTERY W/O ANG PCTRS Status: Chronic Qualifiers: Coronary Disease-Associated Artery/Lesion type: [place] artery [place] vs. transplanted heart: [place] heart Associated angina: without angina Qualified Code(s): I25.10 - Atherosclerotic heart disease of [place] coronary artery without angina pectoris (5) Diverticulosis of colon Code(s): K57.30 - DVRTCLOS OF LG INT W/O PERFORATION OR ABSCESS W/O BLEEDING Status: Chronic Qualifiers: Diverticulosis bleeding: diverticulosis without bleeding Qualified Code(s) : K57.30 - Diverticulosis of large intestine without perforation or abscess without bleeding Comment: covered with abx, symptoms improved. doubt diverticular in origin (6) HTN (hypertension) Code(s): I10 - ESSENTIAL (PRIMARY) HYPERTENSION Status: Chronic Qualifiers: Hypertension type: essential hypertension Qualified Code(s): I10 - Essential (primary) hypertension (7) C. difficile colitis Status: Acute Comment: PO Vanc. probiotics. intake now not keeping up with output. D/C today held due to massive diarrhea overnight, will monitor intake and output, continue probiotics and po vanc - Plan cont current plan of care, continue antibiotics, PT/OT, out of bed/ambulate * .
--- NOTE | 2017-03-26 15:19 | PRG ---
DATE OF SERVICE: 03/26/2017 SUBJECTIVE: Ms. Escamilla was doing pretty well yesterday, but last night she had explosive diarrhea, s ome incontinence. She also was having some problems with shortness of breath and was 65% on room air , requiring 90% on 2 liters. On talking with her, she states that she was placed on oxygen after she was diagnosed with atrial fibrillation and has been on it ever since. She denies any abdominal pain . She denies any nausea. She states that she ate a little bit of frozen treat before bedtime that h ad no milk in it. She was reluctant to eat breakfast this morning, but Dr. English encouraged her to do that. The only thing that changed yesterday was that her ampicillin started about 24 hours before , prior to that, I think she was on Augmentin. She continues receiving vancomycin p.o., as well as S accharomyces boulardii. PHYSICAL EXAMINATION: GENERAL: Patient is resting in bed. VITAL SIGNS: Temperature 97, pulse 76, O2 71% on 2.5 liters, blood pressure 140/60. LUNGS: Clear, slight rales at bases. HEART: Regular rhythm. ABDOMEN: Soft, nontender. LABORATORY STUDIES: White count 7, hemoglobin 11.1, platelet count 272. Comp metabolic profile norm al. Albumin 2.9. ASSESSMENT: 1. Clostridium difficile colitis, improving except last night a bout of explosive diarrhea, this may be related to some antibiotic change. She seems not to be toxic. She does not seem to be developin g toxic megacolon. She has no fever. Her white count is down. I thing we will just watch and see w hat she does and continue the vancomycin. 2. Shortness of breath. She had a chest x-ray that showed bibasilar pleural parenchymal changes, th is maybe with fluid overload from resuscitation which came in. With the amount of diarrhea she had l ast night, she may be diuresing from that standpoint. In any event, possible pulmonology look at her. She does not have a clear cut diagnosis for reason why she is on oxygen.
[2017-03-26] MEDS: Atorvastatin Calcium 20 MG TAB PO SCH (20:29)
[2017-03-26] MEDS: Fish Oil 1,000 MG CAP PO SCH (20:30)
[2017-03-26] MEDS: Multivitamin W/ Minerals 1 TAB PO SCH (20:30)
[2017-03-27] MEDS: Acetaminophen 325 MG TAB PO PRN ×2 (03:13→20:25)
[2017-03-27 04:35] LABS: #Eosinphils 0.1 thou/uL (0.0-0.7); #Lymphocytes 0.8 thou/uL (1.20-3.40); #Monocytes 1.2 thou/uL (0.11-0.59); %Basophils 0.2 % (0.0-1.0); %Eosinophils 0.5 % (0.0-10.0); %Lymphocytes 7.8 % (21.0-51.0); %Monocytes 11.5 % (0.0-10.0); Hematocrit 35.2 % (36.0-47.0); Mean Platelet Volume 7.9 fL (7.4-10.4); Red Blood Cell (RBC) Count 3.55 mill/uL (4.20-5.40)
[2017-03-27 04:45] LABS: Anion Gap 9 mmol/L (10-20); BUN (Urea Nitrogen) 8 mg/dL (9.8-20.1); Calc. Creatinine Clearance 51 mL/min (70-130); Calcium 8.9 mg/dL (7.8-10.44); Carbon Dioxide 30 mmol/L (23-31); Chloride 104 mmol/L (98-107); Estimated GFR-MDRD 56; Magnesium 1.4 mg/dL (1.6-2.6)
[2017-03-27] MEDS ORDERED: Furosemide 20 MG/2 ML VIAL SLOW IVP SCH (08:30)
[2017-03-27] MEDS ORDERED: Furosemide 40 MG/4 ML VIAL ONE (08:45)
[2017-03-27] MEDS: Ascorbic Acid 500 mg Chewable Tablet PO SCH (08:49)
[2017-03-27] MEDS: ALPRAZolam 0.25 MG TAB PO SCH (08:50)
[2017-03-27] MEDS: Apixaban 5 MG TAB PO SCH ×2 (08:50→20:26)
[2017-03-27] MEDS: Amiodarone 200 MG TAB PO SCH (08:51)
[2017-03-27] MEDS: Losartan 25 MG TAB PO SCH (08:52)
[2017-03-27] MEDS: Saccharomyces boulardii 250 MG CAP PO SCH (08:52)
[2017-03-27] MEDS: Cyanocobalamin (Vitamin B-12) 1,000 MCG TAB PO SCH (08:52)
[2017-03-27] MEDS: Vancomycin HCl 25 MG/ML Oral PO SCH (09:02)
[2017-03-27] MEDS: Multivitamin W/ Minerals 1 TAB PO SCH (09:04)
[2017-03-27] MEDS ORDERED: Magnesium Sulfate 3 GM in Sodium Chloride 0.9% 100 ML IVPB SCH (09:15)
[2017-03-27] MEDS: Sodium Chloride 0.9% 1,000 ML IV SCH ×2 (09:58→20:30)
--- NOTE | 2017-03-27 12:13 | PDOC.PN ---
- Subjective Encounter Start Date: 03/27/17 Encounter Start Time: 09:15 Diarrhea better overnight, incontinent only once this morning, more formed today. Still with ocasional SOB, requirign 2.5L NC O2. CXR yesterday looked like edema with cephalization. Echo 11/22 with diastolic dysfunction, EF 50-55% . BNP 1600 no f/c,no N/V, no CP, no cough 10 point ROs performed and neg for all systems except as per hPI - Objective Resuscitation Status: Resuscitation Status FULL:Full Resuscitation MAR Reviewed: Yes Vital Signs & Weight: Vital Signs (12 hours) Temp Pulse Resp BP BP Pulse Ox Pulse Ox 03/27/17 08:55 98.4 F 67 20 144/68 H 92 L 03/27/17 08:18 89 L 03/27/17 07:17 98.4 F 67 16 03/27/17 04:00 98.4 F 67 16 127/71 92 L Pulse Ox 03/27/17 08:55 03/27/17 08:18 93 L 03/27/17 07:17 03/27/17 04:00 Weight Weight 168 lb 8 oz I&O: 03/26/17 03/27/17 03/28/17 06:59 06:59 06:59 Intake Total 1620 2780 Balance 1620 2780 Result Diagrams: 03/27/17 03:49 03/27/17 03:49 Radiology Reviewed by me: Yes EKG Reviewed by me: Yes Phys Exam - Physical Examination Constitutional: NAD HEENT: PERRLA, moist MMs, sclera anicteric, oral pharynx no lesions Neck: no nodes, no JVD, supple, full ROM Respiratory: no wheezing, no rhonchi bilateral fine rales present Cardiovascular: RRR, no significant murmur, no rub Gastrointestinal: soft, non-tender, no distention, positive bowel sounds Musculoskeletal: no edema, pulses present Neurological: non-focal, normal sensation, moves all 4 limbs Lymphatic: no nodes Psychiatric: normal affect, A&O x 3 Skin: no rash, normal turgor, cap refill <2 seconds Dx/Plan (1) Acute diverticulitis Code(s): K57.92 - DVTRCLI OF INTEST, PART UNSP, W/O PERF OR ABSCESS W/O BLEED Status: Acute Comment: suspect not diverticulitis, C diff positive. Rx for CDiff with po vanc now. (2) Chronic a-fib Code(s): I48.2 - CHRONIC ATRIAL FIBRILLATION Status: Chronic Comment: currently sounds to be in NSR. HR regular (3) E. coli UTI (urinary tract infection) Code(s): N39.0 - URINARY TRACT INFECTION, SITE NOT SPECIFIED; B96.20 - UNSP ESCHERICHIA COLI THE CAUSE OF DISEASES CLASSD ELSWHR Status: Acute Comment: present on admit, not catheter associated. cx with enterococcus. Changed to po ampicillin. Rx x 3-5 days only (4) CAD (coronary artery disease) Code(s): I25.10 - ATHSCL HEART DISEASE OF [place] CORONARY ARTERY W/O ANG PCTRS Status: Chronic Qualifiers: Coronary Disease-Associated Artery/Lesion type: [place] artery [place] vs. transplanted heart: [place] heart Associated angina: without angina Qualified Code(s): I25.10 - Atherosclerotic heart disease of [place] coronary artery without angina pectoris (5) Diverticulosis of colon Code(s): K57.30 - DVRTCLOS OF LG INT W/O PERFORATION OR ABSCESS W/O BLEEDING Status: Chronic Qualifiers: Diverticulosis bleeding: diverticulosis without bleeding Qualified Code(s) : K57.30 - Diverticulosis of large intestine without perforation or abscess without bleeding Comment: covered with abx, symptoms improved. doubt diverticular in origin (6) HTN (hypertension) Code(s): I10 - ESSENTIAL (PRIMARY) HYPERTENSION Status: Chronic Qualifiers: Hypertension type: essential hypertension Qualified Code(s): I10 - Essential (primary) hypertension (7) C. difficile colitis Status: Acute Comment: PO Vanc. probiotics. intake now not keeping up with output. improving by symptoms. CCM. (8) Acute on chronic diastolic CHF (congestive heart failure) Code(s): I50.33 - ACUTE ON CHRONIC DIASTOLIC (CONGESTIVE) HEART FAILURE Status : Acute Comment: BNP elevated, like due to fluid resuscitation on admit. given lasix ealier, repeat echo ordered. monitor output and O2 requirements (9) Acute hypoxemic respiratory failure Code(s): J96.01 - ACUTE RESPIRATORY FAILURE WITH HYPOXIA Status: Acute Comment: on 2.5L NC still. diurese gently, follow up on echo, wean O2 as tolerated and arrange for home O2 - Plan cont current plan of care, continue antibiotics, PT/OT, drug abuse social worker, out of bed/ambulate * .
[2017-03-27] MEDS: Atorvastatin Calcium 20 MG TAB PO SCH (20:26)
[2017-03-27] MEDS: Fish Oil 1,000 MG CAP PO SCH (20:26)
[2017-03-27] MEDS: Zolpidem Tartrate 5 MG TAB PO PRN (20:26)
--- NOTE | 2017-03-27 22:34 | PRG ---
DATE OF SERVICE: 03/27/2017 SUBJECTIVE: Ms. Escamilla is sitting up in the commode. She is little bit cold. OBJECTIVE: VITAL SIGNS: Temperature is 98, pulse 68, blood pressure 148/74. Nurses report she has not had any explosive diarrhea the night before. ABDOMEN: Soft, nontender. LUNGS: Clear. LABORATORY DATA: White count 10, hemoglobin 11, platelet count 251. Sodium 139, BUN and creatinine are 8 and 0.94. Echocardiogram was ordered and is pending. ASSESSMENT: 1. Hypoxemia, it was felt that possibly related to some fluid overload. She has received diuresis. 2. Clostridium difficile, improving on p.o. vancomycin. 3. Urinary tract infection, Enterococcus. She was on ampicillin and has been stopped. RECOMMENDATIONS: Continue vancomycin and probiotics. We will follow from a distance. If I can be o f further assistance, please do not hesitate to contact me.
[2017-03-28] MEDS: Sodium Chloride 0.9% 1,000 ML IV SCH (04:45)
[2017-03-28 05:45] LABS: #Eosinphils 0.1 thou/uL (0.0-0.7); #Neutrophils 7.7 thou/uL (1.40-6.50); %Basophils 0.4 % (0.0-1.0); %Lymphocytes 10.4 % (21.0-51.0); %Monocytes 10.1 % (0.0-10.0); Hematocrit 34.8 % (36.0-47.0); Mean Platelet Volume 8.1 fL (7.4-10.4); Red Blood Cell (RBC) Count 3.54 mill/uL (4.20-5.40); White Blood Cell (WBC) Count 9.8 thou/uL (4.8-10.8)
[2017-03-28 06:24] LABS: Anion Gap 11 mmol/L (10-20); BUN (Urea Nitrogen) 10 mg/dL (9.8-20.1); Calc. Creatinine Clearance 53 mL/min (70-130); Calcium 8.8 mg/dL (7.8-10.44); Carbon Dioxide 27 mmol/L (23-31); Chloride 106 mmol/L (98-107); Estimated GFR-MDRD 59; Magnesium 1.9 mg/dL (1.6-2.6)
[2017-03-28] MEDS ORDERED: Furosemide 20 MG/2 ML VIAL SLOW IVP SCH (08:00)
[2017-03-28] MEDS: Cyanocobalamin (Vitamin B-12) 1,000 MCG TAB PO SCH (09:02)
[2017-03-28] MEDS: Ascorbic Acid 500 mg Chewable Tablet PO SCH (09:02)
[2017-03-28] MEDS: Amiodarone 200 MG TAB PO SCH (09:02)
[2017-03-28] MEDS: Apixaban 5 MG TAB PO SCH (09:02)
[2017-03-28] MEDS: Losartan 25 MG TAB PO SCH (09:03)
[2017-03-28] MEDS: Vancomycin HCl 25 MG/ML Oral PO SCH (09:03)
[2017-03-28] MEDS: Saccharomyces boulardii 250 MG CAP PO SCH (09:03)
[2017-03-28] MEDS: ALPRAZolam 0.25 MG TAB PO SCH (09:04)
--- NOTE | 2017-03-28 17:22 | DIS ---
DATE OF ADMISSION: 03/22/2017 DATE OF DISCHARGE: 03/28/2017 DISCHARGE DIAGNOSES: 1. Clostridium difficile colitis. 2. Moderate dehydration. 3. Acute on chronic diastolic congestive heart failure. 4. Physical deconditioning. 5. Acute hypoxic respiratory failure. CONSULTATIONS: Dr. Taiwo Ponce with GI. PROCEDURES: A 2D echocardiogram done in 03/28/2017, results are currently pending. HISTORY AND PHYSICAL: Ms. Escamilla is an 86-year-old female who presented in the emergency department on 03/22/2017 with complaints of abdominal pain. Workup revealed acute sigmoid colitis. She has a history of recent Escherichia coli urinary tract in fection, on ceftriaxone and had reactive urine still on admission. Hospitals were called for admissi on and she was subsequently admitted to inpatient. HOSPITAL COURSE: The patient was seen and examined by Dr. Casey, she was continued on Rocephin, she was started on Flagyl for possible sigmoid diverticulitis, and GI was consulted. Overnight on 03/22/2017 and 03/23/2017, she did well, she remained afebrile. She was seen by Dr. Kurtz and I took over the case. The patient was recommended continued on antibiotics and stool studies ordered on admission were pending. Later that day, the patient came back positive for Clostridium difficile colitis, and on 03/24/2017, she was feeling better. She had no diarrhea and her urinalysis was growing out Enterococcus. She wa s transitioned to p.o. ampicillin to cover the Enterococcus as the most narrow agent, she was continu ed on Flagyl, on 03/25/2017 GI recommended conversion over to oral vancomycin, which was done and the patient was started on probiotics with Florastor. By 03/26/2017, she was feeling better and was abo ut to be discharged, however, overnight she developed multiple episodes of intractable diarrhea and d ischarge was held. She had more than 10 episodes. She was continued on IV fluids, but became short of breath overnight and was found to be in fluid ove rload. IV fluids were stopped. She was given Lasix and oxygen was continued. By 03/28/2017, the patient had no further diarrhea, her breathing was stable on 2 liters of oxygen. She responded well to Lasix, and was stable for discharge home with outpatient followup. PHYSICAL EXAMINATION: The patient was seen and examined on the day of discharge. Discharge plan and disposition were discussed with the patient face to face at the bedside. I did contact her daughter to update her as well. DISCHARGE MEDICATIONS: 1. Ampicillin 250 mg p.o. t.i.d. She has 7 capsules to go. 2. Florastor 250 mg p.o. daily for 2-3 months. 3. Vancomycin 125 mg p.o. q.i.d. of compound elixir. These were sent to her pharmacy. 4. Xanax 0.25 mg p.o. daily per home dosing. 5. Amiodarone 100 mg p.o. daily. 6. Eliquis 2.5 mg p.o. b.i.d. 7. Vitamin C 1000 mg p.o. daily. 8. Lipitor 20 mg p.o. at bedtime. 9. Vitamin D3 of 5000 units p.o. at bedtime. 10. Cyanocobalamin 1000 mcg daily. 11. Fish oil 1000 mg at bedtime. 12. Losartan 50 mg p.o. daily. 13. Metoprolol succinate 50 mg p.o. at bedtime 14. Multivitamin daily. 15. Pantoprazole 40 mg p.o. daily. 16. Zoloft 50 mg p.o. daily. 17. Tylenol p.r.n. 18. Bifidobacterium 4 mg p.o. daily. 19. Her Imodium was discontinued. 20. Ambien 10 mg p.o. at bedtime per home dosing. FOLLOWUP APPOINTMENTS: 1. Primary care physician within a week. 2. Gastrointestinal as scheduled. DISCHARGE CONDITION: Stable. DISPOSITION: She is being discharged to home via private vehicle. DISCHARGE DIET: Soft recommended, heart healthy recommended. DISCHARGE ACTIVITY: Per cardiopulmonary limits.
[2017-03-28 19:08] VITALS: BP 175/75; TEMP 97.3
== END 2017-03-28 19:21 | disposition home or self-care (01) | DRG 371 ==
LOC: ERS 17:42 → 2SW 22:21 → OBSVTOIN 22:21 → T4-A 23:35
PROVIDERS: ADMIT Internal Medicine Addiction Medicine; ATTEND Internal Medicine Addiction Medicine
DX: A04.72 Enterocolitis due to Clostridium difficile, not specified as recurrent (principal); I50.33 Acute on chronic diastolic (congestive) heart failure; J96.01 Acute respiratory failure with hypoxia; N17.9 Acute kidney failure, unspecified; N39.0 Urinary tract infection, site not specified; I13.0 Hypertensive heart and chronic kidney disease with heart failure and stage 1 through stage 4 chronic kidney disease, or unspecified chronic kidney disease; K57.92 Diverticulitis of intestine, part unspecified, without perforation or abscess without bleeding; E86.0 Dehydration; B96.20 Unspecified Escherichia coli [E. coli] as the cause of diseases classified elsewhere; N18.3 Chronic kidney disease, stage 3 (moderate); Z95.0 Presence of cardiac pacemaker; M06.9 Rheumatoid arthritis, unspecified; E78.5 Hyperlipidemia, unspecified; K21.9 Gastro-esophageal reflux disease without esophagitis; Z99.81 Dependence on supplemental oxygen
CPT/HCPCS: 36415; 71020; 74176; 80048; 80053; 80069; 81001; 81003; 81015; 83630; 83690; 83735; 83880; 85025; 87045; 87046; 87077; 87086; 87186; 87324; 87449; 87493; 87899; 93306; 94640; 96361; 96365; 96368; 96372; 99213; 99214; A4216; G0463; G8978-GP-CK; G8979-GP-CJ; G8987-GO-CJ; G8988-GO-CI; J0360; J0696; J0744; J1940; J2405; J3475; J7050; J7620; Q0162

== ENCOUNTER 2018-03-05 13:04 | Outpatient (CLI) | payer MEDICARE, OTHER ==
--- NOTE | 2018-03-05 17:57 | CT ---
CT ABDOMEN AND PELVIS PERFORMED WITHOUT CONTRAST ENHANCEMENT: History: Right lower quadrant pain. No IV contrast was administered due to the low GFR. Comparison: 03-22-17 FINDINGS: The lung bases are clear of infiltrates. Moderated sized hiatal hernia is present. The liver, spleen, and pancreas regions appear unremarkable given limitations of a noncontrast study. The gallbladder has been removed. Right and left adrenal glands are normal in appearance. There are several hypodense lesions involving the left kidney. These appear to be fairly similar to the prior examination, incompletely characteri zed but statistically most likely cysts. No obstruction of either kidney and no signs of ureteral erlinda culi. No significant periaortic or mesenteric adenopathy. Colonic diverticulosis is noted, particular ly severe in the sigmoid colon region. CT OF PELVIS PERFORMED WITHOUT CONTRAST ENHANCEMENT: No evidence of any significant adenopathy, mass or free fluid. The appendix is not definitively ident ified but I see no inflammatory change in this region. The cecum is mildly distended. IMPRESSION: 1. Colonic diverticulosis most severe in the sigmoid colon. 2. Probable renal cysts. 3. Post cholecystectomy change. 4. Moderate hiatal hernia. POS: [facility]
== END 2018-03-05 13:05 | disposition home or self-care (01) ==
LOC: SCSCT 13:04
PROVIDERS: ATTEND Physician Assistant
DX: R10.31 Right lower quadrant pain (principal); K57.30 Diverticulosis of large intestine without perforation or abscess without bleeding; K44.9 Diaphragmatic hernia without obstruction or gangrene; Z90.49 Acquired absence of other specified parts of digestive tract
CPT/HCPCS: 36415; 74176; 82565